=== PATIENT | male | born 1955 | race African-American/Black ===

== ENCOUNTER 2022-09-22 19:44 | Inpatient (IN) | payer OTHER ==
[2022-09-22 20:51] VITALS: BMI 25.3
[2022-09-22] MEDS ORDERED: IBUPROFEN 400 MG TABLET (FP) PO PRN (23:26)
[2022-09-22] MEDS ORDERED: guaiFENesin 200 MG/10 ML 10 ML UNIT-DOSE CUPS PO PRN (23:26)
[2022-09-22] MEDS ORDERED: ACETAMINOPHEN 325 MG TABLET (FP) PO PRN (23:26)
[2022-09-22] MEDS ORDERED: LOPERAMIDE HCL 2 MG CAPSULE PO PRN (23:26)
[2022-09-22] MEDS ORDERED: MAG HYDROX/AL HYDROX/SIMETH 30 ML UNIT-DOSE CUP PO PRN (23:26)
[2022-09-22] MEDS ORDERED: BENZOCAINE/MENTHOL (CHLORASEPTIC ) LOZENGE MM PRN (23:26)
[2022-09-22] MEDS ORDERED: MAGNESIUM HYDROX 2400MG/30ML ORAL SUSPENSION 30 ML CUP PO PRN (23:26)
[2022-09-22] MEDS ORDERED: POLYETHYLENE GLYCOL (HEALTHYLAX) 3350 17 GM PACKET PO PRN (23:26)
[2022-09-23] MEDS ORDERED: TUBERCULIN PPD 5 TU/0.1ML VIAL ID ONE ×2 (05:50→06:28)
[2022-09-23] MEDS: amLODIPine BESYLATE 5 MG TABLET (FP) PO SCH (09:52)
[2022-09-23] MEDS: FOLIC ACID 1 MG TABLET (FP) PO SCH (09:52)
[2022-09-23] MEDS: PRENATAL VITAMINS W/ FOLIC ACID TABLET (FP) PO SCH (09:52)
[2022-09-23 11:26] LABS: HEMATOCRIT 38.1 % (35.4-49); HEMOGLOBIN 12.7 GM/dL (11.7-16.9); MCH 32.4 pg (25.7-33.7); MCHC 33.5 g/dl (32.0-35.9); MEAN CELL VOLUME 96.7 fl (80-96); MEAN PLT VOLUME 7.2 fl (7.5-11.1); PLATELET COUNT 423 10^3/uL (134-434); RBC 3.94 M/mm3 (4.00-5.60); RDW 14.8 % (11.9-15.9); WHITE BLOOD COUNT 3.8 K/mm3 (4.0-10.0)
[2022-09-23 11:32] LABS: CALCIUM 9.7 mg/dL (8.5-10.1)
[2022-09-23 11:33] LABS: ALBUMIN 3.4 g/dl (3.4-5.0); BLOOD UREA NITROGEN 12.6 mg/dL (7-18)
[2022-09-23 11:36] LABS: CREATININE 0.7 mg/dL (0.55-1.3)
[2022-09-23 11:37] LABS: BILIRUBIN,TOTAL 0.7 mg/dL (0.2-1); TOT PROT 6.2 g/dl (6.4-8.2)
[2022-09-23] MEDS: MELATONIN 5 MG TABLETS PO PRN (21:25)
[2022-09-23] MEDS: THIAMINE HCL 100 MG TABLET (FP) PO SCH (21:25)
[2022-09-23] MEDS: TAMSULOSIN HCL 0.4 MG CAP PO SCH (21:26)
[2022-09-23] MEDS: ATORVASTATIN CA 10 MG TABLET (FP) PO SCH (21:26)
[2022-09-24] MEDS: amLODIPine BESYLATE 5 MG TABLET (FP) PO SCH (09:25)
[2022-09-24] MEDS: PRENATAL VITAMINS W/ FOLIC ACID TABLET (FP) PO SCH (09:25)
[2022-09-24] MEDS: FOLIC ACID 1 MG TABLET (FP) PO SCH (09:25)
[2022-09-24] MEDS: MELATONIN 5 MG TABLETS PO PRN (21:02)
[2022-09-24] MEDS: TAMSULOSIN HCL 0.4 MG CAP PO SCH (21:03)
[2022-09-24] MEDS: ATORVASTATIN CA 10 MG TABLET (FP) PO SCH (21:03)
[2022-09-24] MEDS: THIAMINE HCL 100 MG TABLET (FP) PO SCH (21:03)
[2022-09-25] MEDS: PRENATAL VITAMINS W/ FOLIC ACID TABLET (FP) PO SCH (10:14)
[2022-09-25] MEDS: FOLIC ACID 1 MG TABLET (FP) PO SCH (10:14)
[2022-09-25] MEDS: amLODIPine BESYLATE 5 MG TABLET (FP) PO SCH (10:14)
[2022-09-25] MEDS: MELATONIN 5 MG TABLETS PO PRN (21:07)
[2022-09-25] MEDS: TAMSULOSIN HCL 0.4 MG CAP PO SCH (21:07)
[2022-09-25] MEDS: ATORVASTATIN CA 10 MG TABLET (FP) PO SCH (21:07)
[2022-09-25] MEDS: THIAMINE HCL 100 MG TABLET (FP) PO SCH (21:07)
[2022-09-26] MEDS: amLODIPine BESYLATE 5 MG TABLET (FP) PO SCH (10:14)
[2022-09-26] MEDS: PRENATAL VITAMINS W/ FOLIC ACID TABLET (FP) PO SCH (10:14)
[2022-09-26] MEDS: FOLIC ACID 1 MG TABLET (FP) PO SCH (10:14)
[2022-09-26] MEDS: ATORVASTATIN CA 10 MG TABLET (FP) PO SCH (21:03)
[2022-09-26] MEDS: MELATONIN 5 MG TABLETS PO PRN (21:03)
[2022-09-26] MEDS: TAMSULOSIN HCL 0.4 MG CAP PO SCH (21:03)
[2022-09-26] MEDS: THIAMINE HCL 100 MG TABLET (FP) PO SCH (21:03)
[2022-09-27] MEDS: PRENATAL VITAMINS W/ FOLIC ACID TABLET (FP) PO SCH (09:58)
[2022-09-27] MEDS: amLODIPine BESYLATE 5 MG TABLET (FP) PO SCH (09:58)
[2022-09-27] MEDS: FOLIC ACID 1 MG TABLET (FP) PO SCH (09:58)
[2022-09-27] MEDS: THIAMINE HCL 100 MG TABLET (FP) PO SCH (21:12)
[2022-09-27] MEDS: ATORVASTATIN CA 10 MG TABLET (FP) PO SCH (21:12)
[2022-09-27] MEDS: MELATONIN 5 MG TABLETS PO PRN (21:12)
[2022-09-27] MEDS: TAMSULOSIN HCL 0.4 MG CAP PO SCH (21:12)
[2022-09-28] MEDS: PRENATAL VITAMINS W/ FOLIC ACID TABLET (FP) PO SCH (09:53)
[2022-09-28] MEDS: amLODIPine BESYLATE 5 MG TABLET (FP) PO SCH (09:53)
[2022-09-28] MEDS: FOLIC ACID 1 MG TABLET (FP) PO SCH (09:53)
[2022-09-28] MEDS ORDERED: TAMSULOSIN HCL 0.4 MG CAP PO SCH (10:00)
[2022-09-28] MEDS: TAMSULOSIN HCL 0.4 MG CAP PO SCH (10:11)
[2022-09-28] MEDS: HYDROCORTISONE 1% TOPICAL OINT 30 GM TUBE TP PRN (13:53)
[2022-09-28] MEDS: THIAMINE HCL 100 MG TABLET (FP) PO SCH (21:15)
[2022-09-28] MEDS: MELATONIN 5 MG TABLETS PO PRN (21:15)
[2022-09-28] MEDS: ATORVASTATIN CA 10 MG TABLET (FP) PO SCH (21:16)
[2022-09-29] MEDS: TAMSULOSIN HCL 0.4 MG CAP PO SCH (10:00)
[2022-09-29] MEDS: FOLIC ACID 1 MG TABLET (FP) PO SCH (10:00)
[2022-09-29] MEDS: PRENATAL VITAMINS W/ FOLIC ACID TABLET (FP) PO SCH (10:00)
[2022-09-29] MEDS: amLODIPine BESYLATE 5 MG TABLET (FP) PO SCH (10:00)
[2022-09-29] MEDS: P-EPHED 60MG/TRIPROLIDI 2.5MG TABLET PO PRN (10:01)
[2022-09-29] MEDS: HYDROCORTISONE 1% TOPICAL OINT 30 GM TUBE TP PRN (10:01)
[2022-09-29] MEDS: MELATONIN 5 MG TABLETS PO PRN (21:02)
[2022-09-29] MEDS: THIAMINE HCL 100 MG TABLET (FP) PO SCH (21:02)
[2022-09-29] MEDS: ATORVASTATIN CA 10 MG TABLET (FP) PO SCH (21:03)
[2022-09-30] MEDS: P-EPHED 60MG/TRIPROLIDI 2.5MG TABLET PO PRN (09:04)
[2022-09-30] MEDS: PRENATAL VITAMINS W/ FOLIC ACID TABLET (FP) PO SCH (09:04)
[2022-09-30] MEDS: TAMSULOSIN HCL 0.4 MG CAP PO SCH (09:05)
[2022-09-30] MEDS: FOLIC ACID 1 MG TABLET (FP) PO SCH (09:05)
[2022-09-30] MEDS: amLODIPine BESYLATE 5 MG TABLET (FP) PO SCH (09:05)
[2022-09-30] MEDS: ATORVASTATIN CA 10 MG TABLET (FP) PO SCH (21:20)
[2022-09-30] MEDS: MELATONIN 5 MG TABLETS PO PRN (21:20)
[2022-09-30] MEDS: THIAMINE HCL 100 MG TABLET (FP) PO SCH (21:20)
[2022-10-01] MEDS: amLODIPine BESYLATE 5 MG TABLET (FP) PO SCH (09:48)
[2022-10-01] MEDS: FOLIC ACID 1 MG TABLET (FP) PO SCH (09:48)
[2022-10-01] MEDS: PRENATAL VITAMINS W/ FOLIC ACID TABLET (FP) PO SCH (09:48)
[2022-10-01] MEDS: TAMSULOSIN HCL 0.4 MG CAP PO SCH (09:48)
[2022-10-01] MEDS: ATORVASTATIN CA 10 MG TABLET (FP) PO SCH (21:05)
[2022-10-01] MEDS: THIAMINE HCL 100 MG TABLET (FP) PO SCH (21:05)
[2022-10-01] MEDS: P-EPHED 60MG/TRIPROLIDI 2.5MG TABLET PO PRN (21:08)
[2022-10-02] MEDS: amLODIPine BESYLATE 5 MG TABLET (FP) PO SCH (10:12)
[2022-10-02] MEDS: FOLIC ACID 1 MG TABLET (FP) PO SCH (10:12)
[2022-10-02] MEDS: TAMSULOSIN HCL 0.4 MG CAP PO SCH (10:12)
[2022-10-02] MEDS: PRENATAL VITAMINS W/ FOLIC ACID TABLET (FP) PO SCH (10:12)
[2022-10-02] MEDS: ATORVASTATIN CA 10 MG TABLET (FP) PO SCH (21:11)
[2022-10-02] MEDS: THIAMINE HCL 100 MG TABLET (FP) PO SCH (21:11)
[2022-10-03] MEDS: TAMSULOSIN HCL 0.4 MG CAP PO SCH (09:21)
[2022-10-03] MEDS: amLODIPine BESYLATE 5 MG TABLET (FP) PO SCH (10:07)
[2022-10-03] MEDS: PRENATAL VITAMINS W/ FOLIC ACID TABLET (FP) PO SCH (10:07)
[2022-10-03] MEDS: FOLIC ACID 1 MG TABLET (FP) PO SCH (10:07)
[2022-10-03] MEDS: MELATONIN 5 MG TABLETS PO PRN (21:25)
[2022-10-03] MEDS: ATORVASTATIN CA 10 MG TABLET (FP) PO SCH (21:25)
[2022-10-03] MEDS: THIAMINE HCL 100 MG TABLET (FP) PO SCH (21:25)
[2022-10-04] MEDS: TAMSULOSIN HCL 0.4 MG CAP PO SCH (09:30)
[2022-10-04] MEDS: PRENATAL VITAMINS W/ FOLIC ACID TABLET (FP) PO SCH (09:55)
[2022-10-04] MEDS: FOLIC ACID 1 MG TABLET (FP) PO SCH (09:55)
[2022-10-04] MEDS: amLODIPine BESYLATE 5 MG TABLET (FP) PO SCH (09:55)
[2022-10-04] MEDS: MELATONIN 5 MG TABLETS PO PRN (21:29)
[2022-10-04] MEDS: THIAMINE HCL 100 MG TABLET (FP) PO SCH (21:29)
[2022-10-04] MEDS: ATORVASTATIN CA 10 MG TABLET (FP) PO SCH (22:41)
[2022-10-05 08:32] VITALS: RESP 18
[2022-10-05] MEDS: FOLIC ACID 1 MG TABLET (FP) PO SCH (09:35)
[2022-10-05] MEDS: TAMSULOSIN HCL 0.4 MG CAP PO SCH (09:35)
[2022-10-05] MEDS: amLODIPine BESYLATE 5 MG TABLET (FP) PO SCH (09:36)
[2022-10-05] MEDS: PRENATAL VITAMINS W/ FOLIC ACID TABLET (FP) PO SCH (09:36)
[2022-10-05] MEDS: THIAMINE HCL 100 MG TABLET (FP) PO SCH (21:05)
[2022-10-05] MEDS: ATORVASTATIN CA 10 MG TABLET (FP) PO SCH (21:05)
[2022-10-05] MEDS: MELATONIN 5 MG TABLETS PO PRN (21:05)
[2022-10-06 07:05] VITALS: BP 151/73; PULSE 83; TEMP 97.7
[2022-10-06] MEDS: PRENATAL VITAMINS W/ FOLIC ACID TABLET (FP) PO SCH (09:18)
[2022-10-06] MEDS: amLODIPine BESYLATE 5 MG TABLET (FP) PO SCH (09:18)
[2022-10-06] MEDS: TAMSULOSIN HCL 0.4 MG CAP PO SCH (09:18)
[2022-10-06] MEDS: FOLIC ACID 1 MG TABLET (FP) PO SCH (09:19)
== END 2022-10-06 09:46 | disposition home or self-care (01) | DRG 895 ==
LOC: YASAS 19:44 → Y3W 09-23 00:36
PROVIDERS: ADMIT Allergy & Immunology; ATTEND Psychiatry & Neurology Pain Medicine
PROC: HZ42ZZZ Group Counseling for Substance Abuse Treatment, Cognitive-Behavioral (ICD-10-PCS; principal; 2022-09-23)
DX: F10.20 Alcohol dependence, uncomplicated (principal); F17.210 Nicotine dependence, cigarettes, uncomplicated; E78.5 Hyperlipidemia, unspecified; E11.9 Type 2 diabetes mellitus without complications; I10 Essential (primary) hypertension; H54.61 Unqualified visual loss, right eye, normal vision left eye; L30.9 Dermatitis, unspecified; N40.0 Benign prostatic hyperplasia without lower urinary tract symptoms; R21 Rash and other nonspecific skin eruption
CPT/HCPCS: 36415; 80053; 82962; 85027; 86780; C9803-CS; U0003; U0005